=== PATIENT | female | born 1965 | race African-American/Black ===

== ENCOUNTER 2017-05-31 20:51 | Emergency (ER) | payer MEDICAID, OTHER ==
[~2017-05-31] VITALS: Ht 162.6 cm; Wt 104.3 kg
[~2017-05-31 20:51] MED LIST: DICL1GEL26 TOP; IBUP800T24 PO; MELO1TAB73 PO; METF-489 PO; NOR10T PO
[2017-05-31] MEDS ORDERED: cloNIDine HCL 0.1 MG TAB ONE (21:09)
[2017-05-31] MEDS ORDERED: cloNIDine HCL 0.1 MG TAB PO ONE (21:15)
[2017-05-31 21:48] LABS: Basophils # (auto) 0 uL; Eosinophils # (auto) 0.2 uL; Hemoglobin 12.6 g/dL (12.2-16.2); Lymphocytes # (auto) 1.8 uL; Mean Corpuscular Hgb Conc. 32.8 g/dL (32.0-36.0); Neutrophils # (auto) 4.8 uL; Platelet Count (auto) 231 10^3/uL (140-450); White Blood Cell 7.9 10^3/uL (4.4-10.8)
[2017-05-31 21:51] LABS: Basophils % (auto) 0.4 % (0.0-2.0); Eosinophils % (auto) 2.9 % (0.0-7.0); Hematocrit 38.4 % (36.0-46.0); Lymphocytes % (auto) 23.4 % (10.0-50.0); Mean Corpuscular Hemoglobin 24.1 pg (28.0-32.0); Mean Corpuscular Volume 73.3 fL (80.0-100.0); Monocytes % (auto) 12.6 % (0.0-12.0); Neutrophils % (auto) 60.7 % (37.0-80.0); Nucleated Red Blood Cells % 0.2 %; Red Blood Cells 5.24 10^6/uL (4.0-5.20); Red Cell Distribution Width 17.9 % (11.8-14.3)
[2017-05-31 22:09] LABS: Urine Bacteria NONE SEEN /hpf (None Seen); Urine Blood Negative /uL (Negative); Urine Mucus FEW (None Seen); Urine Specific Gravity 1.021 (1.001-1.035); Urine WBC 38 /hpf (0 - 5)
[2017-05-31 22:13] LABS: Albumin 3.6 g/dL (3.4-5.0); BUN/Creatinine Ratio 16.9; Bilirubin, Total 0.2 mg/dL (0.2-1.0); Calcium 8.4 mg/dL (8.5-10.1); Potassium 4.1 mmol/L (3.5-5.1); Total Protein 7.9 g/dL (6.4-8.2)
[2017-05-31 22:38] LABS: INR 0.92 (0.9-1.15); Partial Thromboplastin Time 23.9 sec (22.64-33.71)
[2017-06-01] MEDS ORDERED: cefTRIAXone 1GM/10ml IVPUSH 10 ML IV ONE (08:45)
[2017-06-01 10:17] VITALS: BP 175/107
== END 2017-06-01 10:44 | disposition home or self-care (01) ==
LOC: ER 20:51
DX: R07.9 Chest pain, unspecified (principal); I10 Essential (primary) hypertension; N39.0 Urinary tract infection, site not specified; E11.9 Type 2 diabetes mellitus without complications
CPT/HCPCS: 36415; 71046; 80053; 81001; 81025; 83880; 84484; 85025; 85610; 85730; 93005; 96374

== ENCOUNTER 2018-01-27 15:46 | Emergency (ER) | payer OTHER, MEDICAID ==
[~2018-01-27] VITALS: Ht 162.6 cm; Wt 107.5 kg
[2018-01-27 16:01] VITALS: BP 98/71
== END 2018-01-27 19:41 | disposition home or self-care (01) ==
LOC: ER 15:54
DX: L03.114 Cellulitis of left upper limb (principal); E11.9 Type 2 diabetes mellitus without complications; I10 Essential (primary) hypertension; M19.90 Unspecified osteoarthritis, unspecified site
CPT/HCPCS: 73130

== ENCOUNTER 2018-08-29 00:57 | Emergency (ER) | payer OTHER, MEDICAID ==
[~2018-08-29] VITALS: Ht 162.6 cm; Wt 99.8 kg
[2018-08-29 01:40] VITALS: BP 119/84
[2018-08-29] MEDS ORDERED: BACITRACIN TOP OINT 1 UD PKG TOP ONE (03:15)
[2018-08-29] MEDS ORDERED: LIDOCAINE 1% HCL (LOCAL ANESTH.) INJ 20ML MDV IJ ONE (03:15)
== END 2018-08-29 03:42 | disposition home or self-care (01) ==
LOC: ER 01:00
DX: S61.211A Laceration without foreign body of left index finger without damage to nail, initial encounter (principal); M19.90 Unspecified osteoarthritis, unspecified site; E11.9 Type 2 diabetes mellitus without complications; I10 Essential (primary) hypertension; X58.XXXA Exposure to other specified factors, initial encounter; Y93.G3 Activity, cooking and baking; Y99.8 Other external cause status; Y92.89 Other specified places as the place of occurrence of the external cause
CPT/HCPCS: 12001; 99283; J2001